=== PATIENT | female | born 1935 | race Caucasian/White ===

== ENCOUNTER 2018-10-12 03:57 | Emergency (ER) | payer MEDICARE, MEDICAID ==
[2018-10-12 04:40] LABS: Bilirubin Negative (Negative); Blood, Urine Negative (Negative); Clarity Cloudy (Clear); Glucose, Urine (Dipstick) Negative (Negative); Leukocyte Small (Negative); Nitrite Negative (Negative); Protein, Urine (Dipstick) 30 mg/dL (Neg-Trace); Urobilinogen 0.2 mg/dL (0.2-1.0)
[2018-10-12 04:49] LABS: Bacteria/HPF 2+ HPF (None Seen); RBC/HPF 0-3 HPF (0-3); WBC/HPF 21-50 HPF (0-3)
[2018-10-12] MEDS ORDERED: Ondansetron PF 4 MG/2 ML Vial ONE (04:56)
[2018-10-12] MEDS ORDERED: Fentanyl 100 MCG/2 ML VIAL ONE (04:56)
[2018-10-12 05:04] LABS: #Lymphocytes 0.7 thou/uL (1.20-3.40); #Monocytes 0.2 thou/uL (0.11-0.59); %Basophils 0.4 % (0.0-1.0); %Lymphocytes 9.9 % (21.0-51.0); %Neutrophils 86.7 % (42.0-75.0); Hemoglobin 14.3 g/dL (12.0-16.0); Mean Corpuscular HGB CONC 31.6 g/dL (32.0-36.0); Mean Corpuscular Volume 91.6 fL (78.0-98.0); Mean Platelet Volume 7.4 fL (7.4-10.4); Platelet Count 155 thou/uL (130-400); RBC Distribution Width 11.4 % (11.5-14.5); Red Blood Cell (RBC) Count 4.92 mill/uL (4.20-5.40); White Blood Cell (WBC) Count 6.9 thou/uL (4.8-10.8)
[2018-10-12 05:17] LABS: ALT (SGPT) 11 U/L (8-55); AST (SGOT) 12 U/L (5-34); Albumin 3.9 g/dL (3.4-4.8); Alkaline Phosphatase 78 U/L (40-150); Anion Gap 18 mmol/L (10-20); BUN (Urea Nitrogen) 20 mg/dL (9.8-20.1); Bilirubin, Total 1.3 mg/dL (0.2-1.2); Calc. Creatinine Clearance 0 mL/min (70-130); Calcium 9.4 mg/dL (7.8-10.44); Carbon Dioxide 25 mmol/L (23-31); Chloride 99 mmol/L (98-107); Estimated GFR-MDRD 52; Globulin 3.2 g/dL (2.4-3.5); Glucose 181 mg/dL (83-110); Lipase 16 U/L (8-78); Potassium 3.5 mmol/L (3.5-5.1); Protein, Total 7.1 g/dL (6.0-8.3); Sodium 138 mmol/L (136-145)
--- NOTE | 2018-10-12 07:08 | CT ---
CT ABDOMEN AND PELVIS WITHOUT CONTRAST: INDICATIONS: Right upper abdominal pain for two days. COMPARISON: Reference is made to a 08/28/2015 exam. TECHNIQUE: IV contrast not administered due to patient's stated allergy. FINDINGS: There are chronic appearing interstitial opacities, as well as pleural-based thickening and atelectat ic change evident at the imaged lower lung zones. There are scattered lobules of free intraperitonea l air, and there is prominent inflammation of the abdominal mesentery with interspersed areas of fany l wall thickening, although this is difficult to reliably characterize due to the absence of IV and e nteric contrast. The nidus of inflammation is favored to reside at the right lower quadrant and is s uggested to involve a dilated, unopacified appendix with an appendicolith near the appendiceal base. The appendix measures 12 mm in thickness. Diffuse vascular disease. Granulomatous calcification is present within the liver and spleen. There is a small hiatal hernia. Scattered osseous degenerative changes are present. IMPRESSION: CT findings indicate perforated appendicitis with associated free air. Recommend urgent surgical con sultation. Telephone call to Mynor Matias M.D. placed at the time of dictation ([id number] hours) on 10/12/2018. CODE CR POS: ALY
== END 2018-10-12 06:00 | disposition short-term general hospital (02) ==
LOC: BURERS 03:57
DX: K35.32 Acute appendicitis with perforation, localized peritonitis, and gangrene, without abscess (principal); N39.0 Urinary tract infection, site not specified; I11.0 Hypertensive heart disease with heart failure; I50.9 Heart failure, unspecified; F41.9 Anxiety disorder, unspecified; F32.9 Major depressive disorder, single episode, unspecified
CPT/HCPCS: 51701; 74176; 80053; 81003; 81015; 83690; 84484; 85025; 93005; 96365; 96375; J1956; J2405; J3010

== ENCOUNTER 2020-05-23 03:43 | Emergency (ER) | payer MEDICARE, MEDICAID | END 2020-05-23 07:21 | disposition home or self-care (01) | LOC: BURERS 03:43 | DX: U07.1 COVID-19 (principal); Z79.899 Other long term (current) drug therapy; Z79.82 Long term (current) use of aspirin; I11.0 Hypertensive heart disease with heart failure; I50.9 Heart failure, unspecified | CPT/HCPCS: 71045 ==